=== PATIENT | female | born 1955 ===

== ENCOUNTER 2016-05-17 06:16 | Observation (INO) | payer BC, OTHER ==
[2016-05-14 09:16] VITALS: BMI 26.9
[2016-05-17] MEDS ORDERED: Bupivacaine/Epi 0.25%-1:200,000 10 ml PF inj IJ ONE (07:33)
[2016-05-17] MEDS ORDERED: ceFAZolin IV 1 gm in Dextrose 100 ML IVPB ONE (07:33)
[2016-05-17] MEDS ORDERED: Midazolam 2 MG/2 ML VIAL ONE (07:37)
[2016-05-17] MEDS ORDERED: Propofol 10 mg/ml Inj (20 ML) ONE (07:37)
[2016-05-17] MEDS ORDERED: Phenylephrine 10 mg/ml Inj ONE (07:39)
[2016-05-17] MEDS ORDERED: Rocuronium 10 mg/ml (5 ml) ONE ×2 (07:39→11:14)
[2016-05-17] MEDS ORDERED: Lactated Ringer's 1,000 ML IV ONE ×5 (08:50→10:27)
[2016-05-17] MEDS ORDERED: Neostigmine Methylsulfate 3mg/3ml Syringe IV ONE (10:13)
[2016-05-17] MEDS ORDERED: Morphine 4 MG/ML VIAL ONE ×2 (11:25→11:29)
[2016-05-17] MEDS ORDERED: Trimethobenzamide 200 mg/2 mL Inj IM PRN (11:39)
[2016-05-17] MEDS ORDERED: Morphine 4 MG/ML VIAL IVP PRN (11:39)
[2016-05-17] MEDS ORDERED: Sodium Chloride 0.9% 1,000 ML IV SCH (11:45)
--- NOTE | 2016-05-17 11:46 | PCM.SURG1 ---
Surgeon's Initial Post Op Note - Surgeon's Notes Surgeon: wally rosales md [employer] Consultant: Ernesto NULLY2, luigi Robertson Type of Anesthesia: General Endo, Local Pre-Operative Diagnosis: Chronic pelvic pain. Prolaspe uterus. Urinary incontinence Operative Findings: stage III epical prolpase uterine. Chronic pelvic pain. Urinary incontinence. Severe adhesions. Omental and bowel adhesions. Detailed Operative Report. This is a 60 years old female with chronic pelvic pain, uterine fibroids and epical uterine prolapse and urinary incontinence. The patient completed an extensive preoperative workup, which included an ultrasound, as well as a pap smear and an endometrial biopsy, chemistry and hematology studies. A decision was finally made to proceed with a total robotic assisted hysterectomy, bilateral salpingoophrectomy, and vaginal vault suspension. A detailed description of this robotic procedure was given to the patient, all risks and benefits of the surgical modality was reviewed, printed material was also given to the patient regarding robotic surgery. The patient fully understood all the risks and benefits and elected to proceed with this proposed procedure. After proper consent was obtained from the patient was taken to the operating room, proper patient identification was completed. She was placed in dorsal lithotomy position; general anesthesia was induced without difficulty. Her legs were placed in adjustable Wale stirrups. Careful attention was placed not to over-flex or over-rotate the lower extremities at the hip or the knee joints. She was prepped and draped appropriately for robotic assisted hysterectomy. Stern catheter was inserted under sterile conditions. A weighted speculum was placed in the vagina, anterior lip of cervix was grasped with a tenaculum, and a V-care uterine manipulator was inserted through the cervix and secured. The weighted speculum and tenaculum were removed from the patient's vagina and attention was turned to the patient's abdomen. Local anesthetic solutions of 0.25% Marcaine with epinephrine were utilized to infiltrate the skin prior to all abdominal skin incisions. A total of 15 mL of 0.25% Marcaine was utilized throughout the procedure. While tenting the abdominal wall, a Veres needle was inserted through the umbilicus and a pneumoperitoneum was obtained. Approximately 1 cm above the umbilicus in the midline, a 1 cm incision was made with a scalpel and a trocar and sleeve were introduced. A robotic camera was inserted and an initial survey of the patient's abdomen revealed an anteverted uterus enlarged in size. The uterus appeared severely adherent to the pelvic viscera and the abdominal wall. Tight and dense adhesions noted, endometriosis lesions in the posterior cul-de-sac noted. Fallopian tubes were tightly adherent to the pelvic sidewall and to bowel loops. Both ovaries appeared severely adherent to the pelvic side wall. Dense and severe omental adhesions were noted to the anterior abdominal wall and the umbilicus. The patient was placed in Trendelenburg position ready for a da Titus robotic system to be docked. 3 robotic ports were utilized for this procedure. The first robotic port was placed on the patient's right side approximately 5 cm above the right superior iliac crest where a small skin incision approximately 8 mm was made. The second robotic port was in the patient's left side approximately 5 cm superior to the left superior iliac crest. A small incision approximately 1 cm was made 9 cm lateral to the camera port and an assistant teacher port was inserted. All robotic ports were approximately 8 mm in size, the assistant teacher and the camera ports were 1 cm in size. For the assistant teacher and camera ports we utilized the Versa-step trocar system. All trocars were inserted under direct visualization. The placement of the trocars was all accomplished under careful and meticulous placement under direct visualization. Following the placement of all trocars, the da Titus robotic system was docked in a parallel method without difficulty. The following instruments were utilized for this procedure : the PK sealing device, a monopolar ryan and finally a ProGrasp. Meticulous and careful lysis of adhesions and enterolysis was completed utilizing the monopolar ryan and PK. Prior to the start of the hysterectomy, due to dense adhesions to the pelvic sidewall in close proximity to the ureters, both ureters were explored after opening the retroperitoneum and tracing the ureters and the pelvic brain towards the bladder bilaterally. Both ureters and their courses were visualized, peristalsing without difficulty. Prior to the start of the hysterectomy, Extensive lysis of adhesions and enterolysis was necessary to complete the procedure. On the patient's right side, the round ligament was identified cauterized and transected. The infundibulopelvic ligament was cauterized and transected. The broad ligament was divided all the way down to the utero cervical junction bladder flap was then created by transecting the visceroperitoneum over the bladder reflection. In a similar fashion, the left round ligament, infundibulopelvic ligament and broad ligament were cauterized sealed and transected, taken down to the level of the cervical uterine junction. Uterine vessels on both sides were sealed and transected. The Uterosacral ligaments were sealed and transected. The monopolar ryan and PK were utilized to complete the colpotomy incision around the care vaginal ring. Excellent hemostasis was noted. The uterus, cervix ovaries and fallopian tubes were delivered transvaginally through the colpotomy incision and sent to pathology for permanent analysis. The colpotomy incision was closed with 2-0 v LOC in a continuous fashion with excellent hemostasis. The vaginal vault suspension was achieved by suspending the vaginal cuff to the base of the uterosacral ligaments bilaterally. For uterosacral ligament suspension portion of the procedure, the ureters were once again identified to avoid possible compromise or kinking while suspending the vaginal vault. A 2-0 Goretex suture material was utilized to suspend the uterosacral ligaments from the base to the vaginal vault cuff incision including both anterior and posterior aspect of the colpotomy incision. Utilizing a 3-0 Monocryl suture, the peritoneum over the colpotomy incision and uterosacral ligaments was re-approximated in a continuous fashion. The abdomen was throughout irrigated and cleared of all clots and debris. FloSeal as well as Interceed was applied to the incision sites. Excellent hemostasis was again noted. All robotic and laparoscopic instruments removed under direct visualization. The robotic arms were undocked , and a da Titus robotic system was wheeled away from the patient's bedside. Both assistant teacher and camera ports were closed at the fascial layer utilizing a 2- 0 Vicryl suture serial in interrupted fashion. Pneumoperitoneum was reduced and all skin incisions were closed utilizing 4-0 Monocryl in a subcutaneous fashion. Dermabond was applied to all incisions. Due to the complexity of this hysterectomy, the extensive of the peritoneal and bowel adhesions and finally the distorted pelvic anatomy, a diagnostic cystoscopy was completed. The Stern catheter was removed; the bladder was distended with approximately 300 cc of normal saline. A 30 cystoscope was introduced and a survey of the bladder anatomy was completed. The base, and the dome of the bladder appeared normal, both ureteral orifices appeared normal and were efluxing urine freely. The urethra appeared normal. A Stern catheter was reinserted. Patient emerged from general anesthesia without difficulty, and was taken to recovery room in stable condition. Prior to incision the patient received antibiotics, prior to closure sponge lap and needle counts were correct x2. normal bladder anatomy. ureters explored normal peristolsing Post-Operative Diagnosis: Chronic pelvic pain. Prolaspe uterus. Urinary incontinence. severe adhesions Operation Performed: Total robotic hysterectomy BSO. Uterosacroligament suspension colpopexy. Exploration of ureters. Lysis of adhesions. Cystoscopy Specimen/Specimens Removed: uterus, cervix tubes and ovaries Estimated Blood Loss: EBL {In ML}: 20 Blood Products Given: N/A Drains Used: No Drains Post-Op Condition: Good Date of Surgery/Procedure: 05/17/16 Time of Surgery/Procedure: 11:47
[2016-05-17] MEDS ORDERED: HYDROmorphone 0.5 mg/0.5 ml ISec ONE (12:09)
[2016-05-17] MEDS: HYDROmorphone 0.5 mg/0.5 ml ISec IVP PRN ×4 (12:09→13:15)
[2016-05-17] MEDS ORDERED: Sodium Chloride 0.9% 1,000 ML IV ONE (13:30)
[2016-05-17] MEDS: ceFAZolin IV 1 gm in Dextrose 50 ML IVPB SCH (16:18)
[2016-05-17 16:26] VITALS: RESP 20
[2016-05-18] MEDS: ceFAZolin IV 1 gm in Dextrose 50 ML IVPB SCH ×2 (01:03→08:43)
[2016-05-18] MEDS: Oxycodone/Acetaminophen 5/325 mg Tab PO PRN ×2 (03:00→09:27)
[2016-05-18 07:27] LABS: HEMATOCRIT 36.6 % (34.0-47.0); MEAN CORPUSCULAR HEMOGLOBIN 29.3 pg (27.0-31.0); MEAN CORPUSCULAR HGB CONC 33.3 g/dL (33.0-37.0); MEAN PLATELET VOLUME 8.9 fL (7.2-11.7); RED CELL DISTRIBUTION WIDTH 13.1 % (11.5-14.5); WHITE BLOOD COUNT 12.3 K/uL (4.8-10.8)
[2016-05-18 07:31] LABS: MEAN CELL VOLUME 88.7 fL (81.0-99.0)
[2016-05-18 08:31] VITALS: BP 109/55; PULSE 72; TEMP 98.9; O2SAT 97
--- NOTE | 2016-05-18 16:11 | CP.PCM.DIS ---
Provider - Provider Date of Admission: 05/17/16 11:39 Attending physician: Elin Zapien MD Primary care physician: Rupali Consults: none Time Spent in preparation of Discharge (in minutes): 45 Diagnosis - Discharge Diagnosis (1) Chronic pelvic pain in female Status: Acute Comment: see hospital course (2) Prolapsed uterus Status: Acute Comment: see hospital course Hospital Course - Lab Results Lab Results: Most Recent Lab Values WBC 12.3 K/uL (4.8-10.8) H 05/18/16 07:16 RBC 4.16 Mil/uL (3.80-5.20) 05/18/16 07:16 Hgb 12.2 g/dL (11.0-16.0) D 05/18/16 07:16 Hct 36.6 % (34.0-47.0) 05/18/16 07:16 MCV 88.7 fL (81.0-99.0) 05/18/16 07:16 MCH 29.3 pg (27.0-31.0) 05/18/16 07:16 MCHC 33.3 g/dL (33.0-37.0) 05/18/16 07:16 RDW 13.1 % (11.5-14.5) 05/18/16 07:16 Plt Count 262 K/uL (130-400) 05/18/16 07:16 MPV 8.9 fL (7.2-11.7) 05/18/16 07:16 Blood Type O POSITIVE 05/17/16 07:03 Antibody Screen Negative 05/17/16 07:03 - Hospital Course Hospital Course: Robotic total hysterectomy performed on 05/17/2016. Pt was kept overnight to monitor recovery post-op. Next AM, pt was able to void, tolerate diet, and walk without discomfort. She was discharged with prescription for Percocet and instructions to follow up with Dr. Zapien in two weeks time at his office. Discharge Exam - Head Exam Head Exam: ATRAUMATIC, NORMAL INSPECTION, NORMOCEPHALIC - Eye Exam Eye Exam: EOMI Pupil Exam: PERRL - ENT Exam ENT Exam: Mucous Membranes Moist - Respiratory Exam Respiratory Exam: NORMAL BREATHING PATTERN - GI/Abdominal Exam GI & Abdominal Exam: Normal Bowel Sounds, Soft, Tenderness (appropriate tenderness around surgical site) - Extremities Exam Extremities exam: normal inspection, pedal pulses present - Neurological Exam Neurological exam: Alert, Oriented x3 - Skin Skin Exam: Normal Color, Warm Discharge Plan - Discharge Medications Prescriptions: oxyCODONE/Acetaminophen [Percocet 5/325 mg Tab] 2 ea PO Q8H PRN #40 tab PRN Reason: Pain, Moderate (4-7) - Follow Up Plan Condition: GOOD Disposition: HOME/ ROUTINE Instructions: Robot Assisted Laparoscopic Hysterectomy (DC) Additional Instructions: Pt stable for discharge per Dr. Zapien. Pt given prescription for Percocet. Pt given instructions to follow up with Dr Zapien at his office in two weeks time. His office number is [phone]. NEWLY PRESCIRIBED MEDICATION: Percocet 5/325mg, 1-2 tabs PO every 8 hours NEEDED
== END 2016-05-18 17:00 | disposition home or self-care (01) ==
LOC: C.SDS 06:16 → MERGE 11:39 → C.4M 11:39 → INTOOBSV 11:39
PROVIDERS: ADMIT Obstetrics & Gynecology; ATTEND Obstetrics & Gynecology
PROC: 0UTC7ZZ Resection of Cervix, Via Natural or Artificial Opening (ICD-10-PCS; 2016-05-17)
PROC: 0UT7FZZ Resection of Bilateral Fallopian Tubes, Via Natural or Artificial Opening With Percutaneous Endoscopic Assistance (ICD-10-PCS; 2016-05-17)
PROC: 0UT0FZZ Resection of Right Ovary, Via Natural or Artificial Opening With Percutaneous Endoscopic Assistance (ICD-10-PCS; 2016-05-17)
PROC: 0UN94ZZ Release Uterus, Percutaneous Endoscopic Approach (ICD-10-PCS; 2016-05-17)
PROC: 0USG4ZZ Reposition Vagina, Percutaneous Endoscopic Approach (ICD-10-PCS; 2016-05-17)
PROC: 8E0W4CZ Robotic Assisted Procedure of Trunk Region, Percutaneous Endoscopic Approach (ICD-10-PCS; 2016-05-17)
PROC: 0TJB8ZZ Inspection of Bladder, Via Natural or Artificial Opening Endoscopic (ICD-10-PCS; 2016-05-17)
PROC: 0UT9FZZ Resection of Uterus, Via Natural or Artificial Opening With Percutaneous Endoscopic Assistance (ICD-10-PCS; principal; 2016-05-17 07:45)
DX: N81.4 Uterovaginal prolapse, unspecified (principal); D25.9 Leiomyoma of uterus, unspecified; R32 Unspecified urinary incontinence; K66.0 Peritoneal adhesions (postprocedural) (postinfection); N83.11 Corpus luteum cyst of right ovary
CPT/HCPCS: 36415; 57425; 58571; 85027; 86850; 86900; 88305; 88309; G0378; J0690; J1100; J1170; J2001; J2250; J2270; J2370; J2405; J2704; J2710; J3010; J7030; J7040; J7120; S2900